=== PATIENT | female | born 1985 | race Caucasian/White ===

== ENCOUNTER → 2018-11-25 | Outpatient (CLI) | payer BC ==
[~2018-11-25] MED LIST: HYDCHL25; IBUP400 PO; IBUP800 PO; IRON150C PO; LABE100 PO; LABE200; LABE200 PO; MIRALAX119 GM PO; NIFE30ER PO; OXYACE5T PO; Prenatal Vitam1 EAC2 PO
[2018-11-25 18:03] LABS: Hematocrit 30.1 % (33.0-51.0); Hemoglobin 9.6 g/dL (11.5-16.0)
== END | disposition home or self-care (01) ==
LOC: LAB SHORT 16:13 → LAB 16:13
PROVIDERS: Obstetrics & Gynecology
DX: Z34.80 Encounter for supervision of other normal pregnancy, unspecified trimester (principal)
CPT/HCPCS: 82950; 85014; 85018

== ENCOUNTER 2019-02-14 20:07 | Inpatient (IN) | payer BC ==
[~2019-02-14] VITALS: Ht 162.6 cm; Wt 145.9 kg
[~2019-02-14 20:07] MED LIST changes: -IBUP400 PO; -LABE200 PO; -Prenatal Vitam1 EAC2 PO
[2019-02-14] MEDS ORDERED: LABE200 PO (20:43)
[2019-02-14] MEDS ORDERED: Prenatal Vitam1 EAC2 PO (20:44)
[2019-02-14 20:46] LABS: BASOPHILS ABSOLUTE AUTO 0.01 K/mm3 (0.00-0.23); BASOPHILS PERCENT AUTO 0 % (0-2); EOSINOPHILS ABSOLUTE AUTO 0.11 K/mm3 (0.00-0.68); EOSINOPHILS PERCENT AUTO 1 % (0-6); Hematocrit 32.4 % (33.0-51.0); Hemoglobin 10.5 g/dL (11.5-16.0); IMMATURE GRAN ABSOLUTE AUTO 0.09 K/mm3 (0.00-0.10); IMMATURE GRAN PERCENT AUTO 1 % (0-1); LYMPHOCYTES PERCENT AUTO 16 % (21-46); MONOCYTES ABSOLUTE AUTO 0.74 K/mm3 (0.16-1.47); MONOCYTES PERCENT AUTO 6 % (4-13); Mean Corpuscular HGB 27.1 pg (26.0-34.0); Mean Corpuscular HGB Conc 32.4 g/dL (31.5-36.5); Mean Corpuscular Volume 84 fL (80-100); Mean Platelet Volume 10.7 fL (9.1-12.4); NEUTROPHILS ABSOLUTE AUTO 9.35 K/mm3 (1.96-9.15); NEUTROPHILS PERCENT AUTO 76 % (41-73); Platelet Count 392 K/mm3 (150-400); RDW Coefficient Variation 15.9 % (11.7-14.2); RDW Standard Deviation 47.7 fL (35.1-46.3); Red Blood Cell Count 3.88 M/mm3 (3.80-5.20)
--- NOTE | 2019-02-15 15:58 | NUR ---
CONSULT. BABY IS ONLY ABOUT 12 HOURS OLD AND STILL SOMEWHAT SLEEPY. 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 SHE HAS LIMITED MAMMARY TISSUE. INSTRUCT IN WAYS TO INCREASE SUPPLY WITH ADDED STIMULATION FROM PUMPING, INCREASED WATER INTAKE, NUTRITION WITH WHOLE GRAINS, NUTS AND SEEDS. INSTRUCT/DEMO POSITIONING TO HELP OBTAIN A DEEPER ASYMETRIC LATCH AND THEN FURTHER WIDEN THE LATCH UNTIL COMFORTABLE. MOM ABLE TO SELF EBM WELL. MOM SOMEWHAT UNCOORDINATED WITH GETTING BABY LATCHED, HANDS MOVED TO DIFFERENT PLACEMENT ON BABY FOR BETTER SUPPORT. BABY SUCKLED WELL ABOUT 5 MINUTES, THEN FELL ASLEEP AND SHE WAS PLACED SKIN TO SKIN. INSTRUCT IN CHANGES TO EXPECT DURING THE FIRST WEEK WITH BABY AND WITH FEEDINGS AND REFERRED TO BF BROCHURE AND BF BOOK FOR PHOTOS AND INFORMATION. QUESTIONS ANSWERED. BOTH PARENTS LOVING WITH BABY.
[2019-02-16 05:34] LABS: Hematocrit 28.3 % (33.0-51.0); Hemoglobin 9.1 g/dL (11.5-16.0); Mean Corpuscular HGB 27.7 pg (26.0-34.0); Mean Corpuscular HGB Conc 32.2 g/dL (31.5-36.5); Mean Corpuscular Volume 86 fL (80-100); Mean Platelet Volume 10.6 fL (9.1-12.4); Platelet Count 292 K/mm3 (150-400); RDW Coefficient Variation 15.9 % (11.7-14.2); RDW Standard Deviation 49.8 fL (35.1-46.3); Red Blood Cell Count 3.29 M/mm3 (3.80-5.20); White Blood Cell Count 11.65 K/mm3 (4.00-11.30)
[2019-02-16] MEDS ORDERED: IBUP400 PO (07:53)
--- NOTE | 2019-02-16 13:16 | NUR ---
Met mother and New Baby girl in bed , they are doing well and getteing ready to go home offered prayer and blessed baby and parents.
== END 2019-02-16 12:25 | disposition home or self-care (01) | DRG 807 ==
LOC: BC 20:07
PROVIDERS: ADMIT Obstetrics & Gynecology
PROC: 3E0P7VZ Introduction of Hormone into Female Reproductive, Via Natural or Artificial Opening (ICD-10-PCS; 2019-02-14)
PROC: 10E0XZZ Delivery of Products of Conception, External Approach (ICD-10-PCS; principal; 2019-02-15)
PROC: 0KQM0ZZ Repair Perineum Muscle, Open Approach (ICD-10-PCS; 2019-02-15)
PROC: 3E0R3BZ Introduction of Anesthetic Agent into Spinal Canal, Percutaneous Approach (ICD-10-PCS; 2019-02-15)
DX: O10.92 Unspecified pre-existing hypertension complicating childbirth (principal); Z37.0 Single live birth; O99.214 Obesity complicating childbirth; O70.1 Second degree perineal laceration during delivery; Z3A.39 39 weeks gestation of pregnancy; E66.01 Morbid (severe) obesity due to excess calories
CPT/HCPCS: 36415; 85025; 85027; 86850; 86900; 86901; J0360; J1885; J2001; J2590; J3010; J7120

== ENCOUNTER → 2021-04-25 | Outpatient (CLI) | payer BC ==
[~2021-04-25] MED LIST changes: +IBUP400 PO; +LABE200 PO; +Prenatal Vitam1 EAC2 PO
[2021-04-29 15:10] LABS: HPV 16 Negative (Negative); HPV 18 Negative (Negative); HPV OTHER HR TYPES Negative (Negative)
== END | disposition home or self-care (01) ==
LOC: LAB SHORT 12:52
PROVIDERS: Obstetrics & Gynecology
DX: Z01.419 Encounter for gynecological examination (general) (routine) without abnormal findings (principal)
CPT/HCPCS: 87624; G0123